=== PATIENT | female | born 1985 | race Two or more races ===

== ENCOUNTER 2022-10-12 09:24 | Emergency (ER) | payer MEDICAID, OTHER ==
[~2022-10-12] VITALS: Ht 172.7 cm; Wt 125.0 kg
[2022-10-12 09:49] VITALS: BP 132/82
[2022-10-12] MEDS ORDERED: DexAMETHasone SOD PHOS 10MG/1ML VIAL INJ IM ONE (10:00)
[2022-10-12] MEDS ORDERED: EPINEPHrine HCL 1 MG/1 ML AMP SC ONE (10:00)
[2022-10-12] MEDS ORDERED: METH4PAK PO (10:19)
[2022-10-12] MEDS ORDERED: EPIN0.1I11 IJ (10:19)
[2022-10-12] MEDS ORDERED: EPIN0.3I24 IJ (20:14)
== END 2022-10-12 10:28 | disposition home or self-care (01) ==
LOC: ER 09:24
DX: T78.40XA Allergy, unspecified, initial encounter (principal); X58.XXXA Exposure to other specified factors, initial encounter
CPT/HCPCS: 96372; 99284; J0171; J1100